=== PATIENT | female | born 1995 | race Caucasian/White ===

== ENCOUNTER 2019-08-06 14:33 | Outpatient (CLI) | payer BC ==
--- NOTE | 2019-08-06 17:07 | Ultrasound Report ---
Reason: PELVIC AND PERINEAL PAIN, PRESENCE OF IUD Procedure Date: 08/06/2019 Accession Number: [id number] / [id number] Procedure: US - Pelvic w/Transvaginal CPT Code: Final Report FULL RESULT: EXAM: PELVIC ULTRASOUND EXAM DATE: 08/06/2019 03:57 PM. CLINICAL HISTORY: Pelvic and perineal pain, presence of IUD. LMP: 07/30/2019. COMPARISON: None. TECHNIQUE: Realtime transabdominal pelvic scan performed to identify the uterus and adnexa and as an overview of other pelvic structures, followed by transvaginal scan to provide greater detail of the uterus and adnexa, with static image documentation. FINDINGS: Uterus: 7.6 x 2.5 x 3.5 cm, volume 36.2 cc. Anteverted position. Normal overall size and echotexture. Masses: None. Endometrium: 2.6 mm. There is IUD in the central endometrial location, unremarkable. No endometrial fluid or polyps seen. Cervix: Unremarkable. Right Ovary: 2.3 x 1.6 x 1.9 cm, volume 3.7 cc. Normal echotexture and blood flow. Left Ovary: 2.7 x 2 x 2 cm, volume 5.6 cc. There is a simple cyst, compatible with the dominant follicle cyst, 1.4 x 1.0 x 1.2 cm. Normal echotexture and blood flow. Free Fluid: Trace amount. Other: No periadnexal mass or fluid collection identified. IMPRESSION: IUD in normal location; otherwise, negative pelvic ultrasound. [facility]
== END 2019-08-06 14:34 | disposition home or self-care (01) ==
LOC: DI 14:33 → MERGE 14:45
PROVIDERS: ATTEND Family Medicine
DX: R10.2 Pelvic and perineal pain (principal); Z97.5 Presence of (intrauterine) contraceptive device
CPT/HCPCS: 76830; 76856

== ENCOUNTER 2021-03-14 08:00 | Outpatient (CLI) | payer BC | END 2021-03-14 23:59 | disposition home or self-care (01) | LOC: LAB.N 08:00 | PROVIDERS: ATTEND Physician Assistant Medical | DX: N30.00 Acute cystitis without hematuria (principal) | CPT/HCPCS: 87086 ==

== ENCOUNTER 2022-01-29 08:00 | Outpatient (CLI) | payer BC | END 2022-01-29 23:59 | disposition home or self-care (01) | LOC: LAB.N 08:00 | PROVIDERS: ATTEND Registered Nurse | DX: N30.00 Acute cystitis without hematuria (principal) | CPT/HCPCS: 87086 ==

== ENCOUNTER 2022-08-28 08:00 | Outpatient (CLI) | payer BC, MEDICAID ==
[2022-08-28 21:14] LABS: CHLAMYDIA TRACHOMATIS DNA NEGATIVE (NEGATIVE); NEISSERIA GONORRHOEAE DNA NEGATIVE (NEGATIVE); TRICHOMONAS VAGINALIS DNA NEGATIVE (NEGATIVE)
== END 2022-08-28 23:59 | disposition home or self-care (01) ==
LOC: LAB.N 08:00
PROVIDERS: ATTEND Physician Assistant
DX: A74.9 Chlamydial infection, unspecified (principal)
CPT/HCPCS: 87491; 87591; 87661